=== PATIENT | female | born 1975 | race Hispanic/Latino ===

== ENCOUNTER → 2020-08-23 | Day surgery (SDC) | payer OTHER ==
[~2020-08-23] MED LIST: FENTANYL CITRATE/PF 100MCG/2 ML INJ ONE; MIDAZOLAM HCL 2 MG/2 ML VIAL ONE; OMEPRAZOLE40 MG PO; PROPOFOL IV EMULSION 10 MG/ML 20 ML VIAL ONE; VENOFER100 MG/5 M PO
[2020-08-23 16:07] VITALS: BP 130/84
== END | disposition home or self-care (01) ==
LOC: OR 12:54
PROVIDERS: ATTEND Internal Medicine Gastroenterology
DX: K29.50 Unspecified chronic gastritis without bleeding (principal); K63.5 Polyp of colon; K21.9 Gastro-esophageal reflux disease without esophagitis; K20.90 Esophagitis, unspecified without bleeding; K64.8 Other hemorrhoids; D50.9 Iron deficiency anemia, unspecified; N28.89 Other specified disorders of kidney and ureter; R03.0 Elevated blood-pressure reading, without diagnosis of hypertension; Z88.1 Allergy status to other antibiotic agents; Z01.812 Encounter for preprocedural laboratory examination; Z20.822 Contact with and (suspected) exposure to COVID-19
CPT/HCPCS: 43239; 45380; 81025; J2250; J2704; J3010; U0002; 43235; 45378

== ENCOUNTER → 2023-12-11 | Outpatient (REF) | payer OTHER ==
[~2023-12-11] MED LIST changes: +DIATRIZOATE MEGL/DIATRIZOA SOD 30 ML BTL PO ONE; -FENTANYL CITRATE/PF 100MCG/2 ML INJ ONE; +IOPAMIDOL 370 MG/ML 100 ML INFUS..BTL INJ ONE; -MIDAZOLAM HCL 2 MG/2 ML VIAL ONE; -PROPOFOL IV EMULSION 10 MG/ML 20 ML VIAL ONE
[2023-12-11 12:59] LABS: CREATININE, SERUM 0.8 mg/dL (0.57-1.11)
== END ==
LOC: CT 11:42
PROVIDERS: ATTEND Nurse Practitioner
DX: R10.9 Unspecified abdominal pain (principal)
CPT/HCPCS: 36415; 74177; 82565; 84520; Q9963; Q9967